=== PATIENT | male | born 1980 | race Caucasian/White ===

== ENCOUNTER 2016-12-15 22:43 | Emergency (ER) | payer MEDICARE ==
[~2016-12-15] VITALS: Ht 195.6 cm; Wt 69.0 kg
[~2016-12-15 22:43] MED LIST: ESOM20CA18 PO; HYDR2TAB20 PO; ONDA4TAB PO
[2016-12-15 22:48] VITALS: Ht 195.6 cm; Wt 69.0 kg
--- NOTE | 2016-12-15 22:48 | NUR ---
ROOM PATIENT AMBULATORY TO ROOM
[2016-12-15] MEDS ORDERED: HYDROMORPHONE 2mg/ml INJECTION IV ONE (23:15)
[2016-12-15] MEDS ORDERED: ONDANSETRON 4mg/2ml INJECTION IV ONE (23:15)
--- NOTE | 2016-12-15 23:15 | ERPDOC ---
Departure Disposition Decision Date: Dec 16, 2016 Disposition Decision Time: 00:37 Disposition: 01 DISCHARGED HOME, SELF-CARE Impression Impression Impression: Primary Impression: Postoperative abdominal pain Severity: Severe Condition: Improved Seen By: Physician only Patient Instructions: Abdominal Pain (ED) Problems/Meds/Labs Reviewed?: Yes Medications reviewed and manag: Yes Additional Instructions: Percocet 5 mg one tablet every 6 hours as needed for pain Zofran 4 mg one tablet every 6 hours as needed for nausea Review routine dialysis tomorrow, Call Dr. Morales's office tomorrow to schedule follow up recheck Follow up care ordered?: Yes Mental Status: Alert Scripts Ondansetron (Zofran Odt) 4 Mg Tab.rapdis 4 MG PO Q6HR, #30 TAB Oral disintegrating tablet Prov: KETURAH ANTON MD 12/16/16 Oxycodone HCl/Acetaminophen (Percocet 5-325 mg Tablet) 5-325 Tablet 1 TAB PO QID for PAIN, #30 TAB Take 1 tablet, by mouth, 4 times a day. Prov: KETURAH ANTON MD 12/16/16 HPI - Abdominal Pain General Chief Complaint: Abdominal Pain Stated Complaint: ABD PAIN,PD CATH CHECKED Time Seen by Provider: 23:00 Source: patient History/Exam Limitations: no limitations HPI - Abdominal Pain Initial Comments November 18 of this year the patient had a peritoneal dialysis catheter placed and has been doing well. One week ago the patient is pain medications, but had been doing well at home with natural pathic medications, specifically marijuana. Over the past 2-3 days, the patient has had significant worsening generalized abdominal pain after exerting himself at home, and also having his dog jump on his abdomen several times, but especially just beneath the center entrance. Tonight when the patient was trying to have a bowel movement, he suddenly had profound vomiting of everything that he had ingested during the entire day. Patient became concerned, and was fearful that he might have peritonitis, so he came to the emergency department Patient states that Dr. Morales placed his catheter at via [facility] in [place] last month. Pt see's Dr. Daniel Bermudez in [place] for nephrology. Occurred At: home Onset: Gradual Quality: aching, burning, sharpness Associated Symptoms: nausea/vomiting, DENIES: back pain, chest pain, diaphoresis, fatigue, fever/chills, headache, heartburn, rash, shortness of breath, swelling/mass in abdomen, syncope, weakness Hx of Similar Symptoms: No Allergies: Coded Allergies: morphine (Unverified Adverse Reaction, Unknown, REDNESS, 12/15/16) sumatriptan (Unverified Adverse Reaction, Unknown, HOT FLUSHING, 12/15/16) sumatriptan succinate (Unverified Adverse Reaction, Unknown, HOT FLUSHING , 12/15/16) Past History Patient Medical History Problem List Updates: Renal failure Polycystic kidney disease Past Medical History Metabolic: other GI: other Male: other, renal failure Neurological: migraines Psychological: bipolar, drug abuse Surgical History General: other Family History Family PMH: FOUND: other Vaccines Hx Tetanus Diptheria: No Hx Tetanus, Diptheria, Pertuss: No Social History Smoking Status: Current every day smoker Does patient use chewing tobac: No Second Hand Exposure: No Substance Use Type: marijuana Alcohol Intake: none Record Review Pertinent history updated: Yes Review of Systems Constitutional Constitutional: DENIES: appetite decrease, appetite increase, chills, dizziness , fever, weakness ENMT Ears: DENIES: pain Hearing: DENIES: hearing loss, tinnitus Balance: DENIES: vertigo Mouth/Throat: DENIES: change in swallowing, change in voice, hoarsness, painful swallowing, sore throat Cardiovascular Cardiac: DENIES: chest pain, dyspnea on exertion Rhythm/Rate: DENIES: irregular beat, palpitations, tachycardia Vascular: DENIES: pedal edema Pulmonary Respiratory: DENIES: cough, dyspnea, pleuritic chest pain GI Upper Abdomen: pain, vomiting, DENIES: dysphagia, food intolerances, heartburn/ indigestion, hematemesis, nausea Lower Abdomen: pain, DENIES: blood in stool, ankit-colored stools, constipation , diarrhea, melena, painful BM General: DENIES: burning, dysuria, frequency, pain, urgency Musculoskeletal General: DENIES: cramps, joint pain, joint swelling, pain, weakness Integumentary Skin: DENIES: rash, sores Neurological General: DENIES: headache, numbness, tingling, vertigo, weakness Psychiatric Psychiatric: DENIES: anxiety, depression, nervousness Physical Exam General General Nourishment: well nourished, well developed, appears stated age, thin General Body Habitus: disheveled Vitals and Pain First Documented Vital Signs Date Time Temp Pulse Resp B/P Pulse Ox O2 Delivery O2 Flow Rate FiO2 12/15/16 22:48 98.6 111 16 132/90 100 Room Air Weight: Kilograms: 69.000 Height (feet): 6 Height (inches): 5.00 Triage Pain Scale: Comments Patient appears in moderate distress, thin, with drawn, and frail/week Normal Exams: Head: Normocephalic w/o trauma Eyes: Pupils are PERRLA w/ EOMI, No scleral icterus, irritation, or foreign bodies noted ENMT: No facial trauma, nasal exudates, pharyngeal erythema, or exudates are noted Neck: Full range of motion, without adenopathy, JVD, bruits or thyromegaly CV: Regular rate and rhythm, without murmur or gallop, Pulses 2+ all extremities, capillary refill, <2 seconds all ext., no pedal edema noted Lymphatic: No lymphadenopathy, or lymphedema noted Musculoskeletal: No tenderness, or deformity noted, good range of motion, all extremities Integumentary: No rashes, hives, or bruising noted, hair and nails, without abnormality Neurologic: Patient is alert, and oriented, cranial nerves, motor/sensory/ cerebellar, exams w/o gross deficits, to observation Psychiatric: Patient exhibits, appropriate attention, emotion and affect Abdomen (brief) Abdominal Brief: FOUND: soft, tender (moderate diffuse tenderness, with specific focal tenderness over the area of insertion in the left abdominal wall. Positive guarding with palpation throughout), NOT FOUND: bowel normo active x4 (diminished throughout), distended, hepatosplenomegaly, pulsatile mass Progress Results/Orders Orders Procedure Category Date Status Time Iv Lock (Ed Only) EDM 12/15/16 Transmitted 23:06 Cbc W/Auto LAB 12/15/16 Complete Diff-Reflex Manual Cmp - Comprehensive LAB 12/15/16 Complete Metabolic Lipase LAB 12/15/16 Complete Ua, Dip Wreflex LAB 12/15/16 Logged Microsc & Field Coordinator 23:06 Ct Abd/Pelvis W/O CT 12/15/16 Logged Contrast Hydromorphone PHA 12/15/16 Complete (Dilaudid) 23:15 Ondansetron Inj PHA 12/15/16 Complete (Zofran) 23:15 Lactate - Lactic Acid LAB 12/15/16 Complete C-Reactive Protein - LAB 12/15/16 Complete CRP UNK Normal Saline (Normal PHA 12/15/16 In Process Saline Iv) 23:30 Hydromorphone PHA 12/16/16 Complete (Dilaudid) 00:00 Lab Results Laboratory Tests Test 12/15/16 23:35 White Blood Count 7.0T/MM3 Red Blood Count 2.78M/MM3 Hemoglobin 9.2GM/DL Hematocrit 27.7% Mean Corpuscular Volume 99.6UM3 Mean Corpuscular Hemoglobin 33.1UUG Mean Corpuscular Hemoglobin Concent 33.2GM/DL RDW Standard Deviation 44.9FL Platelet Count 193T/MM3 Mean Platelet Volume 9.6UM3 Immature Granulocyte % (Auto) 0.1% Neutrophils (%) (Auto) 75.9% Lymphocytes (%) (Auto) 12.1% Monocytes (%) (Auto) 8.6% Eosinophils (%) (Auto) 2.7% Basophils (%) (Auto) 0.6% Absolute Immature Granulocyte (auto 0.01T/MM3 Absolute Neutrophils (auto) 5.3T/MM3 Absolute Lymphocytes (auto) 0.8T/MM3 Absolute Monocytes (auto) 0.6T/MM3 Absolute Eosinophils (auto) 0.2T/MM3 Absolute Basophils (auto) 0.0T/MM3 Turbidity < 20 Sodium Level 142MEQ/L Potassium Level 5.7MEQ/L Chloride Level 92MEQ/L Carbon Dioxide Level 16MEQ/L Anion Gap 34MEQ/L Blood Urea Nitrogen 150.0MG/DL Creatinine 23.9MG/DL Glomerular Filtration Rate Calc 2 BUN/Creatinine Ratio 6RATIO Glucose Level 99MG/DL Calculated Osmolality 322MOSM/KG Calcium Level 8.1MG/DL Total Bilirubin 0.90MG/DL Icterus Index < 2 Aspartate Amino Transf (AST/SGOT) 13U/L Alanine Aminotransferase (ALT/SGPT) 24U/L Alkaline Phosphatase 87U/L C-Reactive Protein 72.2MG/L Total Protein 8.0G/DL Albumin 4.7G/DL Globulin 3.3G/DL Albumin/Globulin Ratio 1.4RATIO Lipase 98U/L Plasma Lactate 0.9MMOL/L Chemistry Specimen Hemolysis < 15 Medications Current ED Medications Hydromorphone HCl (Dilaudid) 1 mg O ONCE IV Last administered on 12/15/16 23: 35; Start 12/15/16 at 23:15; Stop 12/15/16 at 23:16; Status DC Ondansetron HCl 4 mg 4 mg O ONCE IV Last administered on 12/15/16 23:34; Start 12/15/16 at 23:15; Stop 12/15/16 at 23:16; Status DC Sodium Chloride (Normal Saline IV) 1,000 ml @ 250 mls/hr Q4H ONCE IV Last administered on 12/15/16 23:33; Start 12/15/16 at 23:30; Stop 12/16/16 at 03:29 Hydromorphone HCl (Dilaudid) 1 mg O ONCE IV Last administered on 12/16/16 00: 25; Start 12/16/16 at 00:00; Stop 12/16/16 at 00:01; Status DC Progress Progress Patient given Dilaudid 1 mg IV, Zofran 4 mg IV for pain and nausea 1 L normal saline is hung at 250 cc per hour CBC - n CMP/L - n the exception of elevated BUN and creatinine, elevated potassium as expected with renal failure CRP - moderate elevation CT abdomen - peritoneal dialysis catheter is in proper position, small amount of ascites, no areas of inflammation within the peritoneal cavity. The numbness rectus muscle that show moderate inflammation consistent with physical irritation that the patient describes. Case is discussed with Dr. Morales, recommends DC to home with Bactrim DS, Percocet for pain, and follow-up with dialysis tomorrow and outpatient consultation with Dr. Morales next week. KETURAH ANTON MD Dec 15, 2016 23:15
[2016-12-15] MEDS ORDERED: NORMAL SALINE 1,000 ML IV ONE (23:30)
[2016-12-15 23:44] LABS: BASOPHILS % (AUTO) 0.6 % (0-2); EOSINOPHILS # (AUTO) 0.2 T/MM3 (0-0.5); EOSINOPHILS % (AUTO) 2.7 % (0-4); HCT - HEMATOCRIT 27.7 % (41-53); HGB - HEMOGLOBIN 9.2 GM/DL (13.5-17.5); IMMATURE GRANULOCYTE # (AUTO) 0.01 T/MM3 (0.00-0.03); IMMATURE GRANULOCYTE % (AUTO) 0.1 % (0.0-0.5); LYMPHOCYTES # (AUTO) 0.8 T/MM3 (1-4.8); LYMPHOCYTES % (AUTO) 12.1 % (23-45); MEAN CORPUSCULAR HGB 33.1 UUG (26-34); MEAN CORPUSCULAR HGB CONC(MCHC 33.2 GM/DL (31-37); MEAN CORPUSCULAR VOLUME 99.6 UM3 (80-100); MEAN PLATELET VOLUME 9.6 UM3 (9.4-12.4); MONOCYTES # (AUTO) 0.6 T/MM3 (0-0.8); MONOCYTES % (AUTO) 8.6 % (0-9.0); NEUTROPHILS #(AUTO)-ABSOLUTE 5.3 T/MM3 (1.8-7.7); NEUTROPHILS % (AUTO) 75.9 % (33-66); RED BLOOD COUNT 2.78 M/MM3 (4.50-5.90)
[2016-12-15 23:52] LABS: LACTATE - LACTIC ACID 0.9 MMOL/L (0.6-2.2)
[2016-12-16] MEDS ORDERED: HYDROMORPHONE 2mg/ml INJECTION IV ONE
[2016-12-16 00:03] LABS: ALBUMIN 4.7 G/DL (3.5-5.0); ALBUMIN/GLOBULIN RATIO 1.4 RATIO (1.1-2.2); ALKALINE PHOSPHATASE 87 U/L (38-126); ALT (SGPT) 24 U/L (21-72); ANION GAP 34 MEQ/L (5-15); AST (SGOT) 13 U/L (17-59); C-REACTIVE PROTEIN 72.2 MG/L (0-9); CALCIUM 8.1 MG/DL (8.4-10.2); CHLORIDE 92 MEQ/L (98-107); CO2 - CARBON DIOXIDE 16 MEQ/L (22-30); GLUCOSE 99 MG/DL (75-110); LIPASE 98 U/L (23-300); POTASSIUM 5.7 MEQ/L (3.6-5); SODIUM 142 MEQ/L (134-144)
[2016-12-16 00:07] LABS: CREATININE 23.9 MG/DL (0.8-1.5); GLOMERULAR FILTRATION RATE 2
[2016-12-16 00:08] LABS: BUN/CREATININE RATIO 6 RATIO (6-26)
--- NOTE | 2016-12-16 00:29 | NUR ---
UPDATE PATIENT STILL RATES PAIN 6/10.
[2016-12-16] MEDS ORDERED: FOLI1CAP16 PO (00:41)
[2016-12-16] MEDS ORDERED: OXYC1TAB8 PO (00:42)
[2016-12-16] MEDS ORDERED: ONDA4TAB7 PO (00:42)
[2016-12-16] MEDS ORDERED: OXYCODONE/APAP 5/325 (Prepack) SENT HOME ONE (00:45)
[2016-12-16] MEDS ORDERED: ONDANSETRON ODT 4mg #3 (PrePack) SENT HOME ONE (00:45)
[2016-12-16] MEDS ORDERED: SULF1TAB42 PO (00:58)
[2016-12-16] MEDS ORDERED: SULFAMETHOXAZOLE SENT HOME ONE (01:00)
[2016-12-16] MEDS ORDERED: TMP DS SENT HOME ONE (01:00)
[2016-12-16 01:08] VITALS: BP 126/69; PULSE 82; RESP 18; TEMP 98.6; O2SAT 99
--- NOTE | 2016-12-16 11:21 | DI ---
Indication: ITS.REASON: abd pain with s/p peritoneal dialysis catheter placement Procedure: CT ABD/PELVIS W/O CONTRAST: Encounter: Initial Comparison: 05/23/2009 Technique: Axial CT images were performed through the abdomen and pelvis without intravenous contrast. Coronal and sagittal reformatted images were also obtained. Automated Exposure Control and Iterative Reconstruction dose reducing techniques were utilized. Findings: Lower chest: Bibasilar subsegmental atelectasis. The visualized heart is normal in size without pericardial effusion. Abdomen: The noncontrast liver is enlarged measuring 21 cm craniocaudal but homogeneous in attenuation. The gallbladder is distended and appears normal. No biliary ductal dilatation. The noncontrast pancreas is homogeneous in attenuation. The spleen is normal in size and attenuation. The adrenal glands are within normal limits. Innumerable bilateral renal cystic lesions consistent with polycystic kidney disease with multiple lesions demonstrating increased attenuation suggesting proteinaceous/hemorrhagic cysts. The ureters are normal in course and caliber. The abdominal aorta is normal in course and caliber. The stomach is partially distended and appears grossly normal. Small bowel loops are normal in caliber without evidence of obstruction. The colon appears grossly normal. The appendix is normal. No intra-abdominal free air mild free fluid. No focal fluid collections. No lymphadenopathy. Peritoneal dialysis catheter in place. Pelvis: The bladder is distended and appears normal. Mild pelvic free fluid. No lymphadenopathy. Osseous structures and soft tissues: No acute osseous abnormality identified. Mild asymmetrical enlargement of the left rectus abdominal musculature surrounding the insertion site of the peritoneal dialysis catheter. Impression: 1. Mild abdominal pelvic free fluid with a peritoneal dialysis catheter in place. Mild asymmetrical enlargement of the left rectus abdominal musculature surrounding the insertion site of the peritoneal dialysis catheter suggesting mild postoperative edema/hemorrhage with myositis not excluded. 2. Innumerable bilateral renal cystic lesions consistent with polycystic kidney disease with multiple lesions demonstrating increased attenuation suggesting proteinaceous/hemorrhagic cysts. The above report concurs with the preliminary report provided by [facility] at 12:39 AM. .
== END 2016-12-16 01:08 | disposition home or self-care (01) ==
LOC: ED 22:43
DX: G89.18 Other acute postprocedural pain (principal); R10.84 Generalized abdominal pain; R11.10 Vomiting, unspecified
CPT/HCPCS: 36415; 74176; 80053; 83605; 83690; 85025; 86140; 96361; 96374; 96375; 96376; 99284; J1170; J2405; J7030